=== PATIENT | male | born 1990 | race Caucasian/White ===

== ENCOUNTER 2018-11-12 11:19 | Emergency (ER) | payer BC ==
[~2018-11-12] VITALS: Ht 175.3 cm; Wt 128.4 kg
[2018-11-12 11:24] VITALS: Ht 175.3 cm; Wt 128.4 kg
[2018-11-12 12:16] LABS: BASOPHIL % 0.2 % (0-2)
[2018-11-12 12:18] LABS: PLATELET COUNT 405 x10^3mcL (130-400); RED CELL DISTRIBUTION WIDTH 16.7 % (11.5-14.5)
[2018-11-12 12:26] LABS: CALCIUM 8.9 mg/dL (8.5-10.1); CARBON DIOXIDE 23.9 mmol/L (21-32); CHLORIDE SERUM 104 mmol/L (98-107); CREATININE SERUM 0.9 mg/dL (0.7-1.3); GFR1 > 60 mL/min; GLUCOSE SERUM 94 mg/dL (74-106); POTASSIUM SERUM 4.4 mmol/L (3.5-5.1); SODIUM SERUM 139 mmol/L (136-145)
[2018-11-12 12:31] LABS: ALKALINE PHOSPHATASE 95 U/L (46-116); ALT/SGPT 36 U/L (16-63); AST/SGOT 20 U/L (15-37); BILIRUBIN TOTAL 0.3 mg/dL (0.20-1.00)
[2018-11-12 12:34] LABS: ALBUMIN 3.1 g/dL (3.4-5.0); TOTAL PROTEIN, SERUM 8.3 g/dL (6.4-8.2)
[2018-11-12 15:47] VITALS: BP 121/59
== END 2018-11-12 16:16 | disposition home or self-care (01) ==
LOC: ED 11:19
PROVIDERS: Emergency Medicine
DX: L02.412 Cutaneous abscess of left axilla (principal); L73.2 Hidradenitis suppurativa; Z98.890 Other specified postprocedural states
CPT/HCPCS: J2543; J3370; J7050